=== PATIENT | male | born 1965 | race Caucasian/White ===

== ENCOUNTER 2016-06-25 09:19 | Emergency (ER) | payer MEDICAID, OTHER ==
[2016-06-25] MEDS ORDERED: KETOROLAC TROMETHAMINE 60 MG/2 ML VIAL IM ONE ×2 (10:23→10:34)
[2016-06-25] MEDS ORDERED: DIAZEPAM 5 MG/ML SYRG IM ONE (10:23)
[2016-06-25] MEDS ORDERED: DIAZEPAM 5 MG/ML SYRG ONE (10:34)
--- NOTE | 2016-06-25 10:45 | ERNOTE ---
Back Pain ER HPI Date of Service: 06/25/16 Presenting Symptoms: injury/pain to back, hx chronic back pain Time Seen by Provider: 06/25/16 10:09 Source: patient, RN notes reviewed Exam Limitations: no limitations Immunizations: IMMUNIZATION HX History of Influenza Vaccine No Hx Pneumococcal Vaccination No Allergies/Adverse Reactions: Allergies No Known Allergies Allergy (Verified 06/25/16 09:33) Home Medications: HOME MEDICATIONS Cyclobenzaprine HCl [Flexeril] 10 mg PO TID PRN #30 tab 06/25/16 [Last Taken Unknown] HYDROcodone/ACETAMINOPHEN [[place] 5-325] 1 tab PO Q6H PRN #16 tab 06/25/16 [Last Taken Unknown] Ibuprofen [Motrin] 600 mg PO Q6H PRN #40 tab 06/25/16 [Last Taken Unknown] Narrative: 50 y/o male ambulatory to ED for right sided low back pain that began 2 days ago without incident. Hx lumbar fusion approx [address] Hernández. Reports that he had not had issues with his back since. He took ibuprofen and hydrocodone yesterday without much improvement. 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 Denies: fever/chills, sweating, constipation/incontinence, nausea/vomiting, problems urinating Prior Treament: Reports: similar symptoms before. Denies: recently seen, treated by physician Review of Systems - Review of Systems Constitutional: Present: See HPI EYE: Present: no symptoms reported ENT: Present: no symptoms reported Respiratory: Absent: shortness of breath, cough Cardiology: Absent: chest pain, edema Gastrointestinal/Abdominal: Present: See HPI Genitourinary: Absent: dysuria, hematuria Musculoskeletal: Present: back pain, muscle pain. Absent: neck pain, joint pain , joint swelling Skin: Absent: rash, lesions Neurological: Present: weakness, numbness, tingling Endocrine: Present: no symptoms reported Hematologic/Lymphatic: Present: no symptoms reported Psych: Absent: anxiety, depressed - Patient's Past Medical History Patient History - Medical: Arthritis, GERD, Headache, Kidney stone, Migraines, Other Patient History - Cardiac/Respiratory: No pertinent hx Patient History - Cancer: No Hx of Cancer Patient History - Surgical Procedures: Back Surgery, Colonoscopy - Social History Living Situations: home Smoking Status: Current every day smoker Have you smoked in the past 12 months: Yes Alcohol Use: rarely Drug Use: other Physical Exam - Physical Exam General Appearance: Present: wd/wn, alert, no apparent distress, other - appropriately dressed and groomed, appears mildly uncomfortable Neck: Present: normal inspection, nontender, supple, full range of motion Respiratory: Present: no respiratory distress, normal breath sounds, no accessory muscle use, lungs clear Cardiovascular/Chest: Present: regular rate, rhythm, no murmur, normal peripheral pulses Back Exam: Present: no CVA tenderness, no vertebral tenderness, decreased range of motion, other - right lumbar region tenderness, mild muscle tenderness in bilateral mid thoracic regions Extremity Exam: Present: non-tender, no edema, decreased range of motion - mild weakness when raising right leg, good strength against resistance in both lower extremities, dorsiflexes great toes without difficulty. Absent: extremity edema Neurological Exam: Present: alert, oriented, normal mood/affect DTR: N=norm/NB=norm/brisk/A=abs/DD=dull/dimin/HC=hyperactive: Knee (R): Dull/ Diminished, Knee (L): Dull/Diminished Skin Exam: Present: normal color, warm/dry ED Progress - Vital Signs Patient's Vital Signs:: I have reviewed the patient's vital signs. Vital Signs: Vital Signs 06/25/16 09:30 Temperature 36.6 C Pulse Rate 82 Respiratory 12 Rate Blood Pressure 138/90 O2 Sat by Pulse 97 Oximetry - Progress/Reassessment Chief Complaint: Back Pain Progress:: Improved Plan - Plan Plan: Toradol and Valium given IM in dept. Discussed conservative treatment with medications and f/u with PCP or back surgeon if no improvement by the beginning of next week. Will give work excuse until 06/30/16. Departure Clinical Impression: Low back pain radiating to right lower extremity - Departure Disposition: Home Follow Up Needed Condition: Good Instructions: Back Pain, Adult, Form - Excuse from Work, School, or Physical Activity Additional Instructions: Take ibuprofen routinely every 6 hours with food Take muscle relaxant and hydrocodone as needed Heat to sore area Contact Dr. WINKLER or Edgar if no improvement by next week Referrals: Rodrick Julio MD [Primary Care Provider] - Naren Hernández MD [Courtesy Staff] - Prescriptions: Cyclobenzaprine HCl [Flexeril] 10 mg PO TID PRN #30 tab PRN Reason: MUSCLE SPASMS HYDROcodone/ACETAMINOPHEN [[place] 5-325] 1 tab PO Q6H PRN #16 tab PRN Reason: Pain Ibuprofen [Motrin] 600 mg PO Q6H PRN #40 tab PRN Reason: Pain
[2016-06-25 11:06] VITALS: BP 109/62
== END 2016-06-25 11:00 | disposition home or self-care (01) ==
LOC: ER 09:19
DX: M54.5 Low back pain (principal); F17.210 Nicotine dependence, cigarettes, uncomplicated; Z87.442 Personal history of urinary calculi